=== PATIENT | male | born 1950 | race African-American/Black ===

== ENCOUNTER → 2016-09-26 | Outpatient (CLI) | payer OTHER ==
[~2016-09-26] MED LIST: ACTOS PO; ASPIRIN PO; FISH OIL 1,0001 CAP PO; GINKO BILOBA; GLUCOSAMINE; LISINOPRIL PO; METFORMIN PO; NORVASC PO; VITAMIN D; VYTORIN 10/20 T1 TAB PO; [UNRECOGNIZED DRUG - OTHER]
--- NOTE | ~2016-09-26 | US136 ---
[facility] A Service of [facility] RADIOLOGY TEXT RESULTS PATIENT: DOUG MARCELINO LOCATION: CNIV : 52 UNIT #: [id number] AGE: [address]: Fahad Flores MD SEX: M ORDER DR: [id number] [facility] [address] [place], [place] [address] [id number] O MR#: [id number] Acc #: [id number] NAME: DOUG MARCELINO : 1950 SEX: M STUDY DATE/TIME: 09/26/2016 8:51 UNIT: CNIV ROOM: STUDY DESCRIPTION: US U/L Ext Art Study [facility] Bil Attending Physician: Fahad Flores M.D. Referring Physician: Fahad Flores M.D. Ordering Physician: Fahad Flores M.D. Primary Care Physician: Fahad Flores M.D. MEDICAL IMAGING REPORT This report is preliminary unless electronic signature is present EXAM Ankle-brachial indices 09/26/2016 HISTORY Peripheral vascular disease. FINDINGS The right brachial artery pressure is 157. The right dorsalis pedis pressure is 179, with an ankle-brachial index of 1.14. The right posterior tibial pressure is 179, with an ankle-brachial index of 1.14. The right digital pressure is 103, with a toe index of 0.66. The left brachial artery pressure is 145. The left dorsalis pedis pressure is 100, with an ankle-brachial index of 0.64. The left posterior tibial pressure is 113, with an ankle-brachial index of 0.72. The left digital pressure is 84, with a toe index of 0.54. Waveforms of the right posterior tibial and dorsalis pedis arteries are triphasic. Waveforms of the left posterior tibial and dorsalis pedis arteries are monophasic. The right ankle waveform is normal with a sharp upstroke and a dicrotic notch. The left ankle waveform is blunted in comparison. IMPRESSION 1. The right VANITA is 1.14, with no evidence of arterial insufficiency. 2. The left VANIAT is 0.72, consistent with moderate arterial insufficiency. Dictated by... [facility] A Service of [facility] RADIOLOGY TEXT RESULTS PATIENT: DOU[facility]ARCELINO [id number] [birth year] UNIT #: [id number] AGE: [address]: Fahad Flores MD SEX: M ORDER DR: Karlos Haynes M.D. THIS IS AN ELECTRONICALLY VERIFIED REPORT Karlos Haynes M.D. at 09/27/2016 1:11 PM [place] TD: 09/26/2016 14:09 JOB #: [id number] MEDICAL IMAGING REPORT Page 1 of 1 COPY
== END | disposition home or self-care (01) ==
LOC: CNIV 08:41
DX: I73.9 Peripheral vascular disease, unspecified (principal)
CPT/HCPCS: 93922